=== PATIENT | female | born 1995 | race African-American/Black ===

== ENCOUNTER 2019-09-24 10:53 | Emergency (ER) | payer OTHER ==
[2019-09-24 11:02] VITALS: BP 127/61; PULSE 75; TEMP 98.7; BMI 37.0
--- NOTE | 2019-09-24 11:47 | PDOC ---
History of Present Illness - General Chief Complaint: Pain Stated Complaint: ODALYS LUMP ON THE SHOULDER Time Seen by Provider: 09/24/19 11:14 History Source: Patient - History of Present Illness Associated Symptoms: denies: fever/chills Past History - Past Medical History Allergies/Adverse Reactions: Allergies Allergy/AdvReac Type Severity Reaction Status Date / Time No Known Allergies Allergy Verified 09/24/19 11:02 Asthma: Yes COPD: No - Psycho Social/Smoking Cessation Hx Smoking History: Never smoked Hx Alcohol Use: Yes Drug/Substance Use Hx: No Review of Systems - Review of Systems Constitutional: No: Chills, Fever, Unexplained wgt Loss HEENTM: No: Throat Pain Respiratory: No: Cough, Shortness of Breath Cardiac (ROS): No: Chest Pain *Physical Exam - Vital Signs Last Vital Signs Temp Pulse Resp BP Pulse Ox 98.7 F 75 16 127/61 98 09/24/19 11:01 09/24/19 11:01 09/24/19 11:01 09/24/19 11:01 09/24/19 11:01 - Physical Exam General Appearance: Yes: Appropriately Dressed. No: Apparent Distress HEENT: positive: Normal Voice Neck: positive: Supple, Other (minimal swelling to L supraclavicular fossa, non- tender) Respiratory/Chest: positive: Lungs Clear, Normal Breath Sounds, Other (breasts pendulous and symmetric with no mass, skin or nipple changes, no lymphadenopathy to axillary area). negative: Respiratory Distress Cardiovascular: positive: Regular Rate, S1, S2 Integumentary: positive: Dry, Warm Neurologic: positive: Fully Oriented, Alert, Normal Mood/Affect Medical Decision Making - Medical Decision Making 09/24/19 11:41 24-year-old female, denies any past medical history, here with lump to L neck that has been ongoing for several months. No significant pain. Was seen for same in another ER several months ago and told to follow-up with her PMD but recently moved to [place] and does not currently have a doctor. No change in symptoms. No unexplained weight loss, breast pain or mass see exam L supraclavicular swelling Chronic Minimal vs R side No other sxs No w/u in past Dc to f/u with PMD for further eval Discharge - Discharge Information Problems reviewed: Yes Clinical Impression/Diagnosis: Neck swelling Condition: Good Disposition: HOME - Follow up/Referral - Patient Discharge Instructions Additional Instructions: Please follow-up with your PMD for further evaluation of neck swelling - Post Discharge Activity
== END 2019-09-24 11:46 | disposition home or self-care (01) ==
LOC: JERFT 10:53
DX: R22.1 Localized swelling, mass and lump, neck (principal)
CPT/HCPCS: 99281-25

== ENCOUNTER 2022-11-01 11:20 | Emergency (ER) | payer OTHER ==
[2022-11-01 11:38] VITALS: BP 118/71; PULSE 94; RESP 16; TEMP 98; BMI 35.5
[2022-11-01 12:57] LABS: PH,URINE 6.5 (5.0-8.0); URINE APPEARANCE CLEAR; URINE BILIRUBIN NEGATIVE (NEGATIVE); URINE COLOR YELLOW; URINE GLUCOSE (UA) NEGATIVE (NEGATIVE); URINE KETONE NEGATIVE (NEGATIVE); URINE LEUK ESTERASE NEGATIVE (NEGATIVE); URINE NITRITE NEGATIVE (NEGATIVE); URINE PROTEIN NEGATIVE (NEGATIVE); URINE UROBILINOGEN 0.2 mg/dL (0.2-1.0)
[2022-11-01 13:00] LABS: EPI CELLS >36 /uL (0-25.1); HYALINE CASTS 1 /uL (0-3.1); URINE BACTERIA 427 /uL (0-1359); URINE RBC 16 /uL (0-23.9); URINE WBC 17 /uL (0-25.8)
[2022-11-01 13:06] LABS: HCG,QUALITATIVE URINE Negative
[2022-11-01] MEDS ORDERED: CYCLOBENZAPRINE HCL 10 MG TABLET (FP) PO ONE (13:11)
[2022-11-01] MEDS ORDERED: LIDOCAINE 5% TOPICAL PATCH TP ONE (13:11)
[2022-11-01] MEDS ORDERED: ACETAMINOPHEN 500 MG TABLET (FP) PO ONE (13:11)
[2022-11-01] MEDS ORDERED: KETOROLAC TROMETHAMINE 30 MG/1 ML VIAL IM ONE (13:11)
[2022-11-01] MEDS ORDERED: ACETAMINOPHEN 500 MG TABLET (FP) ONE (13:32)
[2022-11-01] MEDS ORDERED: CYCLOBENZAPRINE HCL 10 MG TABLET (FP) ONE (13:32)
[2022-11-01] MEDS ORDERED: LIDOCAINE 5% TOPICAL PATCH ONE (13:32)
[2022-11-01] MEDS ORDERED: KETOROLAC TROMETHAMINE 30 MG/1 ML VIAL ONE (13:32)
[2022-11-01] MEDS ORDERED: LIDOCAINE PATCH REMOVAL MC SCH (22:00)
== END 2022-11-01 17:16 | disposition home or self-care (01) ==
LOC: JERFT 11:20
PROC: 3E0333Z Introduction of Anti-inflammatory into Peripheral Vein, Percutaneous Approach (ICD-10-PCS; principal; 2022-11-01)
DX: M54.6 Pain in thoracic spine (principal); M25.511 Pain in right shoulder; M25.512 Pain in left shoulder; D25.9 Leiomyoma of uterus, unspecified; V49.40XA Driver injured in collision with unspecified motor vehicles in traffic accident, initial encounter; Y93.I9 Activity, other involving external motion
CPT/HCPCS: 76830-TC; 81003; 84703; 87086; 99284-25

== ENCOUNTER 2022-12-18 10:27 | Emergency (ER) | payer OTHER ==
[2022-12-18 10:51] VITALS: BP 116/72; PULSE 99; RESP 18; TEMP 98.1; BMI 37.0
[2022-12-18 12:05] LABS: EPI CELLS >36 /uL (0-25.1); HYALINE CASTS 4 /uL (0-3.1); PH,URINE 6.5 (5.0-8.0); URINE APPEARANCE CLOUDY; URINE BACTERIA 2012 /uL (0-1359); URINE BILIRUBIN NEGATIVE (NEGATIVE); URINE COLOR YELLOW; URINE GLUCOSE (UA) NEGATIVE (NEGATIVE); URINE KETONE NEGATIVE (NEGATIVE); URINE LEUK ESTERASE 1+ (NEGATIVE); URINE NITRITE NEGATIVE (NEGATIVE); URINE PROTEIN TRACE (NEGATIVE); URINE RBC 19 /uL (0-23.9); URINE WBC 58 /uL (0-25.8)
[2022-12-18 13:11] LABS: BASO % 0.3 % (0-2.0); EOS % 4.2 % (0-4.5); HEMATOCRIT 35.6 % (32.4-45.2); HEMOGLOBIN 11.1 GM/dL (10.7-15.3); LYMPH % 32.4 % (8-40); MCH 22.2 pg (25.7-33.7); MCHC 31.3 g/dl (32.0-36.0); MEAN CELL VOLUME 71.1 fl (80-96); MONO % 8.2 % (3.8-10.2); NEUT % 54.9 % (42.8-82.8); PLATELET COUNT 307 10^3/uL (134-434); RDW 15.4 % (11.6-15.6); WHITE BLOOD COUNT 8.1 K/mm3 (4.0-10.0)
[2022-12-18 13:20] LABS: INR 1.03 (0.83-1.09); POTASSIUM 4.1 mmol/L (3.5-5.1)
[2022-12-18 13:22] LABS: ACTIVATED PTT 32.6 SECONDS (25.2-36.5); ALBUMIN 3.6 g/dl (3.4-5.0); CALCIUM 8.6 mg/dL (8.5-10.1)
[2022-12-18 13:23] LABS: BLOOD UREA NITROGEN 11.2 mg/dL (7-18)
[2022-12-18 13:25] LABS: CREATININE 0.6 mg/dL (0.55-1.3)
[2022-12-18 13:27] LABS: BILIRUBIN,TOTAL 0.5 mg/dL (0.2-1); TOT PROT 7.2 g/dl (6.4-8.2)
[2022-12-18] MEDS ORDERED: CEPHALEXIN MONOHYDRATE 500 MG CAPSULE (UD) PO ONE (13:58)
[2022-12-18] MEDS ORDERED: CEPHALEXIN MONOHYDRATE 500 MG CAPSULE (UD) ONE (14:53)
[2022-12-20 19:48] LABS: HCG,QUALITATIVE URINE Positive
== END 2022-12-18 16:11 | disposition home or self-care (01) ==
LOC: JER 10:27
DX: O26.891 Other specified pregnancy related conditions, first trimester (principal); R09.81 Nasal congestion; R06.02 Shortness of breath; O20.9 Hemorrhage in early pregnancy, unspecified; Z3A.01 Less than 8 weeks gestation of pregnancy; Z20.822 Contact with and (suspected) exposure to COVID-19
CPT/HCPCS: 0241U-QW; 36415; 76817-TC; 80053; 81003; 84702; 84703; 85025; 85610; 85730; 86850; 86900; 86901; 87086; 99284-25

== ENCOUNTER 2022-12-20 11:54 | Emergency (ER) | payer OTHER ==
[2022-12-20 12:00] VITALS: BP 112/70; PULSE 89; RESP 18; TEMP 98.5; BMI 48.8
== END 2022-12-20 14:16 | disposition home or self-care (01) ==
LOC: JERFT 11:54
DX: O03.9 Complete or unspecified spontaneous abortion without complication (principal); Z3A.00 Weeks of gestation of pregnancy not specified
CPT/HCPCS: 36415; 84702; 99283-25

== ENCOUNTER 2023-10-16 01:14 | Emergency (ER) | payer OTHER ==
[2023-10-16 01:26] VITALS: BP 97/64; PULSE 118; RESP 18; TEMP 98.3; BMI 37.0
[2023-10-16 02:45] LABS: BASO % 0.5 % (0-2.0); EOS % 2.4 % (0-4.5); HEMATOCRIT 23.2 % (32.4-45.2); HEMOGLOBIN 7.1 GM/dL (10.7-15.3); LYMPH % 25.3 % (8-40); MCHC 30.5 g/dl (32.0-36.0); MEAN CELL VOLUME 72.1 fl (80-96); MEAN PLT VOLUME 7.5 fl (7.5-11.1); MONO % 9.5 % (3.8-10.2); NEUT % 62.3 % (42.8-82.8); PLATELET COUNT 511 10^3/uL (134-434); RBC 3.22 M/mm3 (3.60-5.2); RDW 16.1 % (11.6-15.6); WHITE BLOOD COUNT 9.6 K/mm3 (4.0-10.0)
[2023-10-16] MEDS: SODIUM PHOSPHATE/NA BIPHOS 133 ML ENEMA PR ONE (02:46)
[2023-10-16 02:52] LABS: INR 0.94 (0.83-1.09); PROTHROMBIN TIME (PATIENT) 10.9 SEC (9.7-13.0)
[2023-10-16 02:55] LABS: ACTIVATED PTT 27.4 SECONDS (25.2-36.5)
[2023-10-16 03:11] LABS: POTASSIUM 4.1 mmol/L (3.5-5.1)
[2023-10-16 03:13] LABS: ANISOCYTOSIS 1+; CALCIUM 8.8 mg/dL (8.5-10.1); MACROCYTOSIS 0; ROULEAU 1+
[2023-10-16 03:14] LABS: ALBUMIN 2.9 g/dl (3.4-5.0); BLOOD UREA NITROGEN 10.5 mg/dL (7-18)
[2023-10-16 03:17] LABS: CREATININE 0.7 mg/dL (0.55-1.3)
[2023-10-16 03:18] LABS: TOT PROT 6.7 g/dl (6.4-8.2)
[2023-10-16 03:24] LABS: BILIRUBIN,TOTAL 0.2 mg/dL (0.2-1)
== END 2023-10-16 05:47 | disposition home or self-care (01) ==
LOC: JER 01:14
DX: O99.63 Diseases of the digestive system complicating the puerperium (principal); K59.00 Constipation, unspecified; R07.9 Chest pain, unspecified
CPT/HCPCS: 36415; 71275-TC; 80053; 84484; 85025; 85610; 85730; 86850; 86900; 86901; 93005; 93010; 99285-25; Q9967